=== PATIENT | male | born 1960 | race Caucasian/White ===

== ENCOUNTER → 2020-12-23 | Outpatient (REF) | payer MEDICARE ==
[~2020-12-23] MED LIST: ACET65TA OR; CLEO150C OR; FERR325T OR; PERC5TAB8 OR; PRIL20CA OR; RANI150C OR; VICO5TAB OR
[2020-12-23 17:25] LABS: CHOLESTEROL RISK RATIO 3.6 (<5)
== END ==
LOC: M SFHCADAM 14:38
PROVIDERS: ATTEND Physician Assistant
DX: Z13.220 Encounter for screening for lipoid disorders (principal); Z13.1 Encounter for screening for diabetes mellitus; Z12.5 Encounter for screening for malignant neoplasm of prostate; Z79.899 Other long term (current) drug therapy
CPT/HCPCS: 80061; 82947; G0103